=== PATIENT | female | born 1950 | race Two or more races ===

== ENCOUNTER 2018-09-22 09:00 | Outpatient (RCR) | END 2018-09-26 23:59 | PROVIDERS: ATTEND Internal Medicine | DX: R53.1 Weakness (principal); M79.18 Myalgia, other site; M62.81 Muscle weakness (generalized); M79.605 Pain in left leg; M79.604 Pain in right leg; R29.898 Other symptoms and signs involving the musculoskeletal system; M54.16 Radiculopathy, lumbar region ==